=== PATIENT | male | born 1970 | race American Indian/Alaskan Native ===

== ENCOUNTER 2017-07-04 20:45 | Emergency (ER) | payer MEDICAID ==
[2017-07-05] MEDS ORDERED: Ibuprofen 600 MG Tab PO ONE (00:11)
--- NOTE | 2017-07-05 00:13 | EDM.PDOC ---
ED HPI GENERAL MEDICAL PROBLEM - General Chief Complaint: Upper Extremity Injury/Pain Stated Complaint: [id number] HAND HURTS AND VERY SWOLLEN Time Seen by Provider: 07/05/17 00:13 Source of Information: Reports: Patient History Limitations: Reports: No Limitations - History of Present Illness INITIAL COMMENTS - FREE TEXT/NARRATIVE: swelling to left hand x 2 days pain with minimal movement, no injury. No break in skin noted. Right Hand Pain Score (Numeric/FACES): 8 - Related Data Allergies Allergy/AdvReac Type Severity Reaction Status Date / Time Penicillins Allergy Rash Verified 07/04/17 21:19 Home Meds: Home Meds . [Unable to Verify Home Med List] 07/04/17 [History] Past Medical History Cardiovascular History: Reports: High Cholesterol, Hypertension - Infectious Disease History Infectious Disease History: Reports: Chicken Pox Social & Family History - Family History Family Medical History: Noncontributory - Tobacco Use Smoking Status *Q: Current Every Day Smoker Years of Tobacco use: 1 Packs/Tins Daily: 0.3 - Caffeine Use Caffeine Use: Reports: Coffee, Energy Drinks, Soda, Tea - Recreational Drug Use Recreational Drug Use: No Review of Systems - Review of Systems Review Of Systems: See Below Constitutional: Reports: No Symptoms Eyes: Reports: No Symptoms Ears: Reports: No Symptoms Nose: Reports: No Symptoms Mouth/Throat: Reports: No Symptoms Respiratory: Reports: No Symptoms Musculoskeletal: Reports: Arm Pain, Hand Pain (left), Joint Swelling (left wrist ) Skin: Reports: No Symptoms Neurological: Reports: No Symptoms ED EXAM, GENERAL - Physical Exam Exam: See Below Exam Limited By: No Limitations General Appearance: Alert, Mild Distress Eye Exam: Bilateral Eye: EOMI Ears: Normal External Exam Nose: Normal Inspection Throat/Mouth: Normal Inspection Respiratory/Chest: No Respiratory Distress, Lungs Clear Cardiovascular: Regular Rate, Rhythm Extremities: Limited Range of Motion (left hand and wrist, swollen, warm to touch, tender. skin intact) Neurological: Alert, Oriented Skin Exam: Dry, Intact, Increased Warmth, Tattoo(s) Course - Vital Signs Last Recorded V/S: Last Vital Signs Temp 99.6 F 07/04/17 21:21 Pulse 83 07/04/17 21:21 Resp 18 07/04/17 21:21 BP 162/94 H 07/04/17 21:21 Pulse Ox 98 07/04/17 21:21 - Orders/Labs/Meds Labs: Laboratory Tests 07/05/17 07/05/17 07/05/17 Range/Units 00:17 00:17 00:17 WBC 8.2 (5.0-10.0) 10^3/uL RBC 5.36 (4.6-6.2) 10^6/uL Hgb 15.6 (14.0-18.0) g/dL Hct 45.4 (40.0-54.0) % MCV 84.7 (80-100) fL MCH 29.1 (27.0-34.0) pg MCHC 34.4 (33.0-35.0) g/dL Plt Count 210 (150-450) 10^3/uL Neut % (Auto) 71.9 (42.2-75.2) % Lymph % (Auto) 18.1 L (20.5-50.1) % [place] % (Auto) 7.1 (2-8) % Eos % (Auto) 2.7 (1.0-3.0) % Baso % (Auto) 0.2 (0.0-1.0) % Sodium 137 (135-145) mmol/L Potassium 3.4 L (3.6-5.0) mmol/L Chloride 102 (101-111) mmol/L Carbon Dioxide 28.0 (21.0-31.0) mmol/L Anion Gap 10.4 BUN 14 (7-18) mg/dL Creatinine 1.0 (0.6-1.3) mg/dL Est Cr Clr Drug Dosing 99.16 mL/min Estimated GFR (MDRD) > 60 BUN/Creatinine Ratio 14.00 Glucose 107 H (74-105) mg/dL Lactic Acid 0.6 (0.5-2.2) mmol/L Uric Acid 7.9 H (2.6-7.2) mg/dL Calcium 9.2 (8.4-10.2) mg/dl Total Bilirubin 1.3 H (0.2-1.0) mg/dL AST 28 (10-42) IU/L ALT 17 (10-60) IU/L Alkaline Phosphatase 73 (42-121) IU/L Total Protein 8.0 (6.7-8.2) g/dl Albumin 4.4 (3.2-5.5) g/dl Globulin 3.6 Albumin/Globulin Ratio 1.22 Meds: Medications Discontinued Medications Generic Name Dose Route Start Last Admin Trade Name Pedro PRN Reason Stop Dose Admin Hydrocodone Bitart/Acetaminophen 1 tab 07/05/17 01:03 07/05/17 01:08 [place] 325-10 Mg PO 07/05/17 01:04 1 tab ONETIME ONE Administration Ibuprofen 600 mg 07/05/17 00:11 07/05/17 00:30 Motrin PO 07/05/17 00:12 600 mg ONETIME ONE Administration - Radiology Interpretation Free Text/Narrative:: left hand , no faracture, or dislocation Departure - Departure Time of Disposition: 00:55 Disposition: Home, Self-Care 01 Condition: Good Clinical Impression: Gout Qualifiers: Gout site: hand Gout etiology: unspecified cause Chronicity: acute Laterality: left Qualified Code(s): M10.9 - Gout, unspecified - Discharge Information Instructions: Low-Purine Eating Plan, Gout, [id number] Referrals: Henry Garduno [Primary Care Provider] - Forms: ED Department Discharge Additional Instructions: elevate ibuprofen 600mg every 8 hours #30, may alternate with tylenol inbetween for severe pain Increase fluids gout information packet
[2017-07-05 00:43] LABS: CHLORIDE,CL 102 mmol/L (101-111); SODIUM,NA 137 mmol/L (135-145)
[2017-07-05] MEDS ORDERED: Acetaminophen/HYDROcodone 325-10 MG Tab PO ONE (01:03)
== END 2017-07-05 01:05 | disposition home or self-care (01) ==
LOC: DL.ED 20:45
DX: M10.9 Gout, unspecified (principal); I10 Essential (primary) hypertension; F17.210 Nicotine dependence, cigarettes, uncomplicated; Z88.0 Allergy status to penicillin
CPT/HCPCS: 36415; 73130; 80053; 83605; 84550; 85025; 99283; A9270

== ENCOUNTER 2019-02-14 09:10 | Inpatient (IN) | payer MEDICAID, OTHER ==
--- NOTE | 2019-02-14 09:30 | EDM.PDOC ---
ED HPI GENERAL MEDICAL PROBLEM - General Chief Complaint: Head Injury Stated Complaint: AMBULANCE Time Seen by Provider: 02/14/19 09:21 Source of Information: Reports: Patient, EMS History Limitations: Reports: No Limitations - History of Present Illness INITIAL COMMENTS - FREE TEXT/NARRATIVE: HPI- This 49 yo male patient was brought to the ED by [facility] after falling in the shower this morning, hitting his head on the soap dish and being unable to control the bleeding on his own. EMS had attempted to control bleeding prior to arrival but were unable to control the bleeding. The patient reports he was drinking last night. The patient denies any loss of consciousness before, during or after the fall. Primary Survey Airway: open and patient Breathing: regular without additional effort Circulation: The patient had arterial bleeding from the left temporal area due to a laceration. Bleeding initially controlled with direct digital pressure. Wound sutured to control bleeding for CT scans. Deformity: no deformity noted Expose: as appropriate GCS: 15 Secondary Survey HEENT Head: Laceration to the left Mor[place] (sutured upon arrival) with no current bleeding Eyes: PERRLA Ears: no obvious trauma, canals open Nose: no deformity, no bleeding, mucosa moist Mouth: no noted trauma Throat: no abnormalities noted Neck: Subtle, normal range of motion no cervical tenderness Chest: lung sounds were clear and equal bilaterally, Heart was RRR, no murmurs, rubs or gallop Abdomen: normoactive bowel sounds, no organomegally. The patient's expression tells that the patient has diffuse abdominal pain, but the patient states he is alright and wants to sign out of the hospital. Pelvis: stable Extremities: CMS intact Provider Trauma Notes Arrival Time: 914 GCS on Arrival: 15 C-collar present on arrival: No (patient refused c-collar) GCS at 1 hour: 15 Off spine board: NA Time primary survey: 920 Time secondary survey: 951 Time C-collar cleared: By: Time removed: GCS on discharge: Onset: Today Duration: Hour(s):, Constant Location: Reports: Head (left temporal bleeding) Quality: Reports: Ache Severity: Moderate Improves with: Reports: None Worsens with: Reports: None Context: Reports: Other Associated Symptoms: Reports: No Other Symptoms head Pain Score (Numeric/FACES): 6 - Related Data Allergies Allergy/AdvReac Type Severity Reaction Status Date / Time Penicillins Allergy Rash Verified 08/11/17 14:52 Home Meds: Home Meds Aspirin [Halfprin] 81 mg PO DAILY 08/11/17 [History] Omeprazole 20 mg PO DAILY 08/11/17 [History] hydroCHLOROthiazide [Hydrochlorothiazide] 12.5 mg PO DAILY 08/11/17 [History] Past Medical History Cardiovascular History: Reports: High Cholesterol, Hypertension Gastrointestinal History: Reports: GERD Musculoskeletal History: Reports: Gout - Infectious Disease History Infectious Disease History: Reports: Chicken Pox Social & Family History - Family History Family Medical History: Noncontributory - Caffeine Use Caffeine Use: Reports: Coffee, Energy Drinks, Soda ED ROS GENERAL - Review of Systems Review Of Systems: Comprehensive ROS is negative, except as noted in HPI. ED EXAM, HEAD INJURY - Physical Exam Exam: See Below Exam Limited By: No Limitations General Appearance: Alert, WD/WN, Mild Distress Head: Active Bleeding (left advent ) Nexus Criteria: Painful Distraction Injuries Eyes: Bilateral Eye: EOMI, Normal Inspection, PERRL Ears: Canal Blood (no bleeding from the ear, but blood in the left canal) Nose: Normal Inspection, Normal Mucousa, No Blood Throat/Mouth: Normal Inspection, Normal Lips, Normal Teeth, Normal Gums, Normal Oropharynx, Normal Voice, No Airway Compromise Neck: Non-Tender, Full Range of Motion, Normal Alignment, Normal Inspection Respiratory: No Respiratory Distress, Lungs Clear, Normal Breath Sounds, No Accessory Muscle Use, Chest Non-Tender Cardiovascular: Normal Peripheral Pulses, Regular Rate, Rhythm, No Edema, No Gallop, No JVD, No Murmur, No Rub GI/Abdominal Exam: Tender (diffuse tenderness (patient denies any pain or tenderness) ) (Male) Exam: No Hernia, Normal Inspection, Normal Prostate, Circumcised Rectal (Males) Exam: Normal Exam, Normal Rectal Tone, Prostate Normal Back Exam: Full Range of Motion, Normal Inspection, NT Extremities: Normal Inspection, Normal Range of Motion, Non-Tender, No Pedal Edema, Normal Capillary Refill Neurologic: wafer cleaner II-XII nml As Tested, No Motor/Sensory Deficits, Alert, Normal Mood/Affect, Oriented x 3 - [place] Coma Score Best Eye Response ([place]): (4) Open Spontaneously Best Verbal Response ([place]): (5) Oriented Best Motor Response ([place]): (6) Obeys Commands [place] Total: 15 ED LACERATION/WOUND & DENA PROC - Laceration/Wound Repair Left Head Lac/wound length in cm: 2.0 Appearance: Subcutaneous Distal NVT: Neuro & Vascular Intact Skin Prep: Other Exploration/Debridement/Repair: Wound Explored Closed with: Sutures Suture Size: 3-0 # of Sutures: 3 Suture Type: Prolene, Interrupted, Simple Drain Placement: No Sterile Dressing Applied: Nurse Tetanus Status Addressed: Other Complications: No Course - Vital Signs Last Recorded V/S: Last Vital Signs Temp Pulse 117 H 02/14/19 09:21 Resp BP 91/47 L 02/14/19 09:21 Pulse Ox 95 02/14/19 09:21 - Orders/Labs/Meds Orders: Active Orders 24 hr Category Date Time Status Cervical Spine wo Cont [CT] Urgent Exams 02/14/19 09:18 Ordered Head wo Cont [CT] Urgent Exams 02/14/19 09:18 Ordered Max Facial Sinus wo Cont [CT] Urgent Exams 02/14/19 09:18 Ordered CBC WITH AUTO DIFF [HEME] Urgent Lab 02/14/19 09:19 Ordered COMPREHENSIVE METABOLIC PN,CMP [CHEM] Urgent Lab 02/14/19 09:19 Ordered ETHANOL BLOOD MEDICAL [CHEM] Stat Lab 02/14/19 09:19 Ordered - Re-Assessments/Exams Free Text/Narrative Re-Assessment/Exam: 02/14/19 10:06 The patient refused any additional care and did not want to wait for any additional results. The patient was advised that he would be leaving against medical advice. The patient denies any additional testing or work up. The patient's family was in the room and attempted to get the patient to stay, but the patient refused to stay. The patient checked out against medical advice prior to complete work-up or evaluation. Departure - Departure Time of Disposition: 10:09 Disposition: Against Medical Advice 07 Condition: Undetermined Clinical Impression: Laceration of head Qualifiers: Encounter type: initial encounter Location of open wound of head: scalp Foreign body presence: without foreign body Qualified Code(s): S01.01XA - Laceration without foreign body of scalp, initial encounter Fall Qualifiers: Encounter type: initial encounter Qualified Code(s): W19.XXXA - Unspecified fall, initial encounter - Discharge Information *PRESCRIPTION DRUG MONITORING PROGRAM REVIEWED*: Not Applicable *COPY OF PRESCRIPTION DRUG MONITORING REPORT IN PATIENT KATHARINE: Not Applicable Instructions: Laceration Care, Adult, [id number], Stitches, [place], or Adhesive Wound Closure, [id number] Care Plan Goals: The patient refused to stay for results or further care. The patient was advised of the risks, but left the ED against medical advice. Attempts at getting the patient to stay for a complete work-up resulted in the patient leaving against medical advice. Sepsis Event Note - Evaluation Sepsis Screening Result: No Definite Risk - Focused Exam Vital Signs: Vital Signs Pulse BP Pulse Ox 02/14/19 09:21 117 H 91/47 L 95 Date Exam was Performed: 02/14/19 Time Exam was Performed: 09:23 - My Orders Last 24 Hours: My Active Orders 02/14/19 09:18 Cervical Spine wo Cont [CT] Urgent Head wo Cont [CT] Urgent Max Facial Sinus wo Cont [CT] Urgent 02/14/19 09:19 CBC WITH AUTO DIFF [HEME] Urgent COMPREHENSIVE METABOLIC PN,CMP [CHEM] Urgent ETHANOL BLOOD MEDICAL [CHEM] Stat - Assessment/Plan Last 24 Hours: My Active Orders 02/14/19 09:18 Cervical Spine wo Cont [CT] Urgent Head wo Cont [CT] Urgent Max Facial Sinus wo Cont [CT] Urgent 02/14/19 09:19 CBC WITH AUTO DIFF [HEME] Urgent COMPREHENSIVE METABOLIC PN,CMP [CHEM] Urgent ETHANOL BLOOD MEDICAL [CHEM] Stat
--- NOTE | 2019-02-14 09:55 | CT ---
EXAMINATION: Head wo Cont SEX: Male AGE: 49 years CLINICAL HISTORY: 49-year-old male injured fall (bathtub) with laceration ("liter" over the left eye. Scan technique: Volume acquisition of data emergency unenhanced CT scan of the head and brain obtained with patient lying supine on the Siemens multislice scanner [place], [place]. All data archived in the PACS system for storage, reformatting axial/sagittal/coronal planes and study (bone/soft tissue windows). Interpretation: Edentulous patient with some focal soft tissue swelling over the orbit on the left. Old nasal fracture deformity. No foreign bodies or signs of underlying frontal bone fracture. Frontal and ethmoid sinuses clear. Uniformly thick bony calvarium without sign of underlying brain contusion or epidural/subdural hematoma. Symmetric lew-white matter pattern with underlying mirror-image normal ventricular system. No sign of supratentorial or posterior fossa mass lesion, ischemic infarct/encephalomalacia, pathologic calcifications, or acute intracerebral/intraventricular/subarachnoid bleed. Cerebellum and brainstem unremarkable (physiologic midline pineal and symmetric choroid plexus calcifications). Inflammatory changes left maxillary sinus. Possible old "blowout" floor of the left orbit. No retrobulbar hematoma or entrapment. Symmetric clear pneumatization of the mastoid and other paranasal sinuses. CONCLUSION: Left maxillary sinusitis; probable old "blowout" floor of the left orbit. Old nasal bone fractures. Edentulous. No sign of acute skull fracture or closed head injury.
--- NOTE | 2019-02-14 10:01 | CT ---
EXAMINATION: Cervical Spine wo Cont SEX: Male AGE: 49 years CLINICAL HISTORY: 49-year-old male injured fall (bathtub this morning) with head trauma (bleeding over forehead, on the left). INTERPRETATION: 1. Edentulous patient with abnormal TMJ on the left. No basal skull fracture. 2. Dense reactive atlantoaxial sclerosis and chronic severe disc degeneration C5-6 i.e. loss of interspace with hypertrophic marginal and uncinate spur formation. Reversal of usual cervical lordosis. 3. No sign of congenital abnormality, pathologic skeletal lesion, prevertebral soft tissue swelling, cervical fracture, spondylolisthesis or jumped locked facets. 4. Facet joint sclerosis at several levels. No other intervertebral disc space narrowing. CONCLUSION: No cervical fractures. Chronic severe C5-6 degenerative disc with arthritis.
[2019-02-14 10:05] LABS: ANION GAP 18.7
--- NOTE | 2019-02-14 10:09 | CT ---
EXAMINATION: Max Facial Sinus wo Cont SEX: Male AGE: 49 years CLINICAL HISTORY: 49-year-old male injured FALL (bathtub) i.e. head trauma above orbit, on the left. INTERPRETATION: 1. Old healed nasal fracture deformity. Nasal septum is straight midline. 2. Cortical "break" floor of the orbit and anterior wall left maxillary antrum with signs of ipsilateral periosteal thickening (sinusitis). Old trauma suspect but no comparison exams immediately available. No sign of rectal bulbar hematoma or inferior rectus muscle entrapment. 3. Symmetric clear pneumatization of the frontal, ethmoid and sphenoid sinuses. Right maxillary sinus clear. 4. Edentulous patient with abnormal left TMJ. Symmetric clear pneumatization of the mastoid sinuses. No basal skull fracture. 5. Asymmetric soft tissue swelling over the orbit on the left. No foreign body or underlying fracture. CONCLUSION: Evidence of old trauma. No acute facial bone fracture.
[2019-02-14] MEDS ORDERED: Iopamidol 612 MG/ML 100 ML Bottle IVPUSH ONE (10:35)
--- NOTE | 2019-02-14 11:34 | CR ---
EXAMINATION: Chest 1V Frontal SEX: Male AGE: 49 years CLINICAL HISTORY: 49-year-old male syncope, fall (hit head on bathtub); forehead laceration with bleeding. Abdominal pain. INTERPRETATION: 1. Generally poor inspiratory effort and asymmetric elevation right hemidiaphragm. 2. No rib fractures, lung contusion, atelectasis, pleural effusion or pneumothorax. 3. Normal cardiac silhouette and mediastinal width. Normal midline tracheal airway. 4. No cephalization of vascular flow, alveolar edema or dependent effusion. 5. No lung mass, hilar lymphadenopathy or focal lobar infiltrate/atelectasis. 6. No pneumothorax or pneumomediastinum. CONCLUSION: Negative exam.
--- NOTE | 2019-02-14 12:05 | CT ---
EXAMINATION: Abdomen Pelvis w Cont SEX: Male AGE: 49 years CLINICAL HISTORY: 49 year-old 239 pound male injured in a fall (syncopal episode, hit head on bathtub). RLQ abdominal pain. Scan technique: Volume acquisition of data from the abdomen and pelvis obtained without oral contrast but during intravenous administration 100 cc nonionic Isovue were patient was lying supine on the Siemens multislice scanner [place], [place]. All data archived in the PACS system for storage, reformatting axial/sagittal/coronal planes and study. INTERPRETATION: 1. Solitary tiny indeterminate (no calcification or spiculation) 9.5 mm diameter peripheral nodule laterally left lower lobe. Lung bases otherwise clear. No lower rib fractures or underlying lung contusion. No pleural effusion. 2. No abdominal wall hematoma or inflammatory "dirty" peritoneal fat. Normal appendix RLQ. 3. No foreign bodies, abdominal/pelvic soft tissue mass lesion, signs of mechanical bowel obstruction, ascites or free air. 4. Chronic lower thoracic and lumbar disc disease with associated hypertrophic arthritis. 5. Gallbladder, fatty liver, stomach, spleen, pancreas and adrenal glands unremarkable. Normal reniform size, axis and configuration. No renal cortical mass lesion, nephrolithiasis or signs of obstructive uropathy. Indwelling bladder catheter. 6. Normal caliber aortoiliac vessels. Colon CONCLUSION: Negative exam abdomen. Isolated indeterminate lung nodule left base. Chronic L5-S1 disc disease.
[2019-02-14] MEDS ORDERED: Acetaminophen 325 MG Tab PO ONE (13:16)
[2019-02-14] MEDS ORDERED: Ondansetron 4 MG/2 ML SDV IV ONE (16:00)
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
[2019-02-14] MEDS ORDERED: Acetaminophen 325 MG Tab PO PRN (18:15)
[2019-02-14] MEDS ORDERED: Morphine 2 MG/ML Syringe IVPUSH PRN (18:15)
[2019-02-14] MEDS ORDERED: LORazepam 1 MG Tab PO PRN (18:22)
[2019-02-14] MEDS ORDERED: Sodium Chloride 0.9% 10 ML Syringe FLUSH PRN (18:46)
[2019-02-14] MEDS: Acetaminophen/HYDROcodone 325-10 MG Tab PO PRN (19:38)
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
[2019-02-15 06:28] LABS: ANION GAP 14.6; CHLORIDE,CL 104 mmol/L (101-111); SODIUM,NA 138 mmol/L (135-145)
[2019-02-15] MEDS: Acetaminophen/HYDROcodone 325-10 MG Tab PO PRN ×3 (07:50→20:01)
[2019-02-15] MEDS: Sodium Chloride 0.9% 1,000 ML IV SCH ×2 (08:39→17:55)
--- NOTE | 2019-02-15 09:40 | PN ---
DATE: 02/15/2019 SUBJECTIVE: The patient this morning still complaining of pain in his oral cavity and also on the left scalp area but overall has been doing fairly well. He has not ambulated yet, but his blood pressure has improved when compared to yesterday, and he denies any chest pain, shortness of breath, abdominal pain, or focal weakness. OBJECTIVE: VITAL SIGNS: Blood pressure is 132/81, pulse of 97, respirations 20, saturations 99% on room air, and temperature is 97.3. SHEENT: Remarkable for the bandage on the left scalp area. There are pink palpebral conjunctivae. Sclerae anicteric. Heart: Regular rate and rhythm. Normal S1 and S2. No gallops. No rubs. Lungs: Equal bilaterally. No crackles, no wheezing. Abdomen: Soft, nontender. Bowel sounds positive. Extremities: Negative for any pedal edema. No calf tenderness. Neurologic: Negative for any lateralizing signs. LABORATORY DATA: Lab workup this morning: CBC; WBC is 4.9, hemoglobin is 11.5, hematocrit is 34.1, and platelet is 184. Chem 6 unremarkable except for glucose of 140 and calcium of 7.8. PLAN: We will continue with his present management and please note that the IV fluids was not started last night. This will be started today, and we will also start ambulating the patient and see how he does. [facility] /[id number]
[2019-02-15] MEDS: Nicotine 14 MG/24 Hr Patch TRDERM SCH (13:52)
[2019-02-16] MEDS: Sodium Chloride 0.9% 1,000 ML IV SCH (02:06)
[2019-02-16] MEDS: Acetaminophen/HYDROcodone 325-10 MG Tab PO PRN ×4 (04:26→22:20)
--- NOTE | 2019-02-16 09:34 | PN ---
DATE: 02/16/2019 SUBJECTIVE: The patient is feeling a little bit better this morning. He is not that dizzy, but he is still complaining of being sore on his head and on his oral cavity and face. He denies though any fever, chills, or chest pain, nor any other significant complaints. LABORATORY DATA: Lab workup this morning: CBC; WBC is 3.9, hemoglobin is 9.9, hematocrit is 29.4, platelet is 144. OBJECTIVE: Vital Signs: Blood pressure is 115/58, pulse of 80, respirations 20, and temperature of 98.1. SHEENT: Remarkable for the lacerated wound on the scalp. Otherwise negative. Heart: Regular rate and rhythm. Normal S1 and S2. No gallops. No rubs. Lungs: Clear. No crackles. No wheezing. Abdomen: Soft, nontender. Extremities: Negative for any gross deformities. No significant pedal edema. No calf tenderness. PLAN: We will discontinue his IV fluid and we will continue to increase his activity, and if he continues to do well, we will discharge in the morning. [facility] /[id number]
[2019-02-16] MEDS: Nicotine 14 MG/24 Hr Patch TRDERM SCH (10:09)
[2019-02-17] MEDS: Acetaminophen/HYDROcodone 325-10 MG Tab PO PRN (05:46)
--- NOTE | 2019-02-17 07:56 | PN ---
DATE: 02/17/2019 SUBJECTIVE: The patient this morning is feeling slightly better. No more dizziness. He has been up and about and no more falls. He is still complaining though being sore in his head as well as on his face, but he denies any chest pain, shortness of breath, abdominal pain, or any other complaints. OBJECTIVE: Vital Signs: Blood pressure is 130/75, pulse 69, respirations 18, temperature of 98.4, saturation is 98%. SHEENT: Examination is remarkable for the laceration on the scalp with sutures. It is well coapted. No signs of infection. SHEENT examination otherwise negative. Heart: Regular rate and rhythm. Normal S1 and S2. No gallops. No rubs. Lungs: Equal bilaterally. No crackles. No wheezing. Abdomen: Soft, nontender. Extremities: Negative for any gross deformity. No pedal edema. Neurologic: Nonfocal. PLAN: We will discharge the patient home today, and we will also start the patient on ferrous sulfate for the blood-loss anemia and we will have him follow up at [facility] for removal of those sutures in 4 to 5 days. We will also give him some oxycodone for the next couple of days for pain management. [facility] /[id number]
--- NOTE | 2019-02-17 08:11 | DISCH ---
FINAL DIAGNOSES: 1. Head concussion. 2. Recurrent falls secondary to dizziness. 3. Dizziness secondary to orthostasis/blood loss anemia from the lacerated wound and head concussion. 4. History of hypertension. 5. Recent dental surgery. 6. Lacerated wound on the scalp. BRIEF HISTORY OF PRESENT ILLNESS: Please see H and P. PERTINENT LABS, X-RAY AND OTHER TESTS: See H and P. HOSPITAL COURSE: The patient was admitted to General Medicine floor and he was started on IV fluids and was also given pain medication for his aches and pains. The patient's hemoglobin dropped from 14.3 on admission to 9.9 on February 16, 2019, but overall the patient clinically was better and there were no more orthostasis and dizziness, and he was ambulating well and he was subsequently discharged. CONDITION ON DISCHARGE: Improved. FOLLOWUP: The patient to follow up at [facility] for removal of sutures in 4 to 5 days. [facility] /[id number]
== END 2019-02-17 09:35 | disposition home or self-care (01) | DRG 89 ==
LOC: DL.ED 09:10 → DL.MS 17:27
PROVIDERS: ADMIT Family Medicine; ATTEND Internal Medicine
PROC: 0HQ0XZZ Repair Scalp Skin, External Approach (ICD-10-PCS; principal; 2019-02-14)
DX: S06.0X0A Concussion without loss of consciousness, initial encounter (principal); D62 Acute posthemorrhagic anemia; I10 Essential (primary) hypertension; E78.00 Pure hypercholesterolemia, unspecified; K21.9 Gastro-esophageal reflux disease without esophagitis; M10.9 Gout, unspecified; F17.210 Nicotine dependence, cigarettes, uncomplicated; S01.01XA Laceration without foreign body of scalp, initial encounter; R29.6 Repeated falls; R40.2412 Glasgow coma scale score 13-15, at arrival to emergency department; W18.2XXA Fall in (into) shower or empty bathtub, initial encounter; Z98.890 Other specified postprocedural states; Z88.0 Allergy status to penicillin; Z79.82 Long term (current) use of aspirin
CPT/HCPCS: 36415; 70450; 70486; 71045; 72125; 74177; 80048; 80053; 80305-QW; 81003; 84484; 85025; 93005; 97162-GP; A9270-GY; G0480; J2405; J7030; Q9967

== ENCOUNTER 2021-09-28 00:45 | Emergency (ER) | payer MEDICAID, OTHER | END 2021-09-28 01:37 | LOC: DL.ED 00:45 | DX: F10.920 Alcohol use, unspecified with intoxication, uncomplicated (principal); I10 Essential (primary) hypertension; F17.210 Nicotine dependence, cigarettes, uncomplicated; Z88.0 Allergy status to penicillin | CPT/HCPCS: 99282; 99284 ==

== ENCOUNTER 2023-05-23 21:15 | Emergency (ER) | payer MEDICAID ==
[2023-05-23] MEDS: Ketorolac 30 MG/ML SDV IVPUSH ONE (21:47)
[2023-05-23] MEDS: Sodium Chloride 0.9% 1,000 ML IV SCH (21:48)
[2023-05-23 21:54] LABS: BASOPHILS PERCENT AUTO 0.4 % (0.0-1.0); EOSINOPHILS PERCENT AUTO 13.6 % (1.0-3.0); HEMATOCRIT 44.2 % (40.0-54.0); LYMPHOCYTES PERCENT AUTO 23.6 % (20.5-50.1); MEAN CORPUSCULAR HEMOGLOBIN 27.9 pg (27.0-34.0); MEAN CORPUSCULAR HGB CONC 33.9 g/dL (33.0-35.0); MEAN CORPUSCULAR VOLUME 82.3 fL (80-100); MONOCYTES PERCENT AUTO 7.7 % (2-8); NEUTROPHILS PERCENT AUTO 54.7 % (42.2-75.2); PLATELET COUNT,PLT 282 10^3/uL (150-450); RED BLOOD CELL COUNT 5.37 10^6/uL (4.6-6.2); WHITE BLOOD CELL COUNT,WBC 7.8 10^3/uL (5.0-10.0)
[2023-05-23 22:04] LABS: ALBUMIN 3.6 g/dL (3.4-5.0); ANION GAP 12.7 mEq/L (7-13); BILIRUBIN TOTAL 0.5 mg/dL (0.2-1.0); BUN/CREATININE RATIO 12.6 (No establ ref range); CALCIUM 8.5 mg/dL (8.5-10.1); CREATININE 0.95 mg/dL (0.70-1.30); EST CRCL DRUG DOSING (CG) 103.35 mL/min; POTASSIUM,K 3.7 mmol/L (3.5-5.1); PROTEIN TOTAL,TP 7.3 g/dL (6.4-8.2)
[2023-05-23 22:21] LABS: CORONAVIRUS COVID-19 NAA NEGATIVE (NEGATIVE); INFLUENZA A NAA NEGATIVE (NEGATIVE); INFLUENZA B NAA NEGATIVE (NEGATIVE); RESPIRATORY SYNCYTIAL VIR NAA NEGATIVE (NEGATIVE)
== END 2023-05-23 23:10 | disposition home or self-care (01) ==
LOC: DL.ED 21:15
DX: J06.9 Acute upper respiratory infection, unspecified (principal); I10 Essential (primary) hypertension; E78.00 Pure hypercholesterolemia, unspecified; Z79.82 Long term (current) use of aspirin; Z79.899 Other long term (current) drug therapy; Z88.0 Allergy status to penicillin
CPT/HCPCS: 0241U; 36415; 71045; 80053; 85025; 87081; 87430; 96361; 96374; 99283; 99284; J1885; J7030

== ENCOUNTER 2023-09-22 18:01 | Emergency (ER) | payer MEDICAID ==
[2023-09-22 18:46] LABS: BASOPHILS PERCENT AUTO 0.8 % (0.0-1.0); EOSINOPHILS PERCENT AUTO 3.3 % (1.0-3.0); HEMATOCRIT 46.4 % (40.0-54.0); HEMOGLOBIN 16.1 g/dL (14.0-18.0); LYMPHOCYTES PERCENT AUTO 32.6 % (20.5-50.1); MEAN CORPUSCULAR HEMOGLOBIN 29.3 pg (27.0-34.0); MEAN CORPUSCULAR HGB CONC 34.7 g/dL (33.0-35.0); MEAN CORPUSCULAR VOLUME 84.4 fL (80-100); MONOCYTES PERCENT AUTO 7.8 % (2-8); NEUTROPHILS PERCENT AUTO 55.5 % (42.2-75.2); PLATELET COUNT,PLT 232 10^3/uL (150-450); WHITE BLOOD CELL COUNT,WBC 4.9 10^3/uL (5.0-10.0)
[2023-09-22] MEDS: Pantoprazole 40 MG Vial IVPUSH ONE (18:53)
[2023-09-22] MEDS: HYDROmorphone 1 MG/ML Syringe IVPUSH ONE (18:53)
[2023-09-22 18:58] LABS: PROTHROMBIN TIME 10.5 SEC (9.0-12.0); PTT,PARTIAL THROMBOPLSTIN TIME 25.3 SEC (22.0-34.0)
[2023-09-22 19:01] LABS: A/G RATIO 1.1; ALANINE AMINOTRANSFERASE,ALT 95 U/L (16-63); ALKALINE PHOSPHATASE 194 U/L (46-116); AMYLASE 37 U/L (25-115); ANION GAP 17.5 mEq/L (7-13); ASPARTATE AMNIOTRANSFERASE,AST 122 U/L (15-37); BILIRUBIN TOTAL 0.5 mg/dL (0.2-1.0); BLOOD UREA NITROGEN,BUN 7 mg/dL (7-18); BUN/CREATININE RATIO 6.7 (No establ ref range); CALCIUM 8.6 mg/dL (8.5-10.1); CARBON DIOXIDE,CO2 23 mmol/L (21-32); CHLORIDE,CL 105 mmol/L (98-107); CREATININE 1.05 mg/dL (0.70-1.30); ETHANOL BLOOD MEDICAL 287 mg/dL (0); GLUCOSE RANDOM 114 mg/dL (70-99); LIPASE 59 U/L (16-77); POTASSIUM,K 3.5 mmol/L (3.5-5.1); PROTEIN TOTAL,TP 7.8 g/dL (6.4-8.2); SODIUM,NA 142 mmol/L (136-145)
[2023-09-22] MEDS: Sodium Chloride 0.9% 10 ML Syringe FLUSH PRN (19:01)
[2023-09-22] MEDS: Sodium Chloride 0.9% 1,000 ML IV ONE (19:01)
[2023-09-22 19:03] LABS: C-REACTIVE PROTEIN < 0.50 ng/dL (<=0.50); ESTIMATED GFR 84 mL/min (>=60)
[2023-09-22 19:04] LABS: LACTIC ACID 2.3 mmol/L (0.4-2.0)
[2023-09-22] MEDS: Iopamidol 612 MG/ML 100 ML Bottle IVPUSH ONE (19:21)
[2023-09-22 19:43] LABS: APPEARANCE,URINE CLEAR (CLEAR); BILIRUBIN,URINE NEGATIVE (NEGATIVE); COLOR,URINE YELLOW (YELLOW); GLUCOSE,URINE NEGATIVE (NEGATIVE); KETONES,URINE NEGATIVE (NEGATIVE); LEUKOCYTE ESTERASE,URINE NEGATIVE (NEGATIVE); NITRITE,URINE NEGATIVE (NEGATIVE); OCCULT BLOOD,URINE NEGATIVE (NEGATIVE); PH,URINE 6.5 (5.0-9.0); PROTEIN,URINE NEGATIVE (NEGATIVE); UROBILINOGEN,URINE 0.2 mg/dL (0.2-1.0)
[2023-09-22 19:44] LABS: AMPHETAMINES,URINE NEGATIVE (NEGATIVE); BARBITURATES,URINE NEGATIVE (NEGATIVE); BENZODIAZEPINE,URINE NEGATIVE (NEGATIVE); MDMA (ECSTASY), URINE NEGATIVE (NEGATIVE); METHADONE,URINE NEGATIVE (NEGATIVE); METHAMPHETAMINES,URINE NEGATIVE (NEGATIVE); OPIATES,URINE NEGATIVE (NEGATIVE); OXYCODONE,URINE NEGATIVE (NEGATIVE); PHENCYCLIDINE,URINE NEGATIVE (NEGATIVE); TCA,URINE NEGATIVE (NEGATIVE)
[2023-09-22] MEDS: Lisinopril 5 MG Tab PO ONE (20:37)
[2023-09-22] MEDS: Pantoprazole 40 MG Tab.CR PO ONE (20:37)
== END 2023-09-22 20:44 | disposition home or self-care (01) ==
LOC: DL.ED 18:01
DX: K57.90 Diverticulosis of intestine, part unspecified, without perforation or abscess without bleeding (principal); K29.20 Alcoholic gastritis without bleeding; R16.0 Hepatomegaly, not elsewhere classified; R74.02 Elevation of levels of lactic acid dehydrogenase [LDH]; F10.920 Alcohol use, unspecified with intoxication, uncomplicated; I10 Essential (primary) hypertension; E78.00 Pure hypercholesterolemia, unspecified; F17.210 Nicotine dependence, cigarettes, uncomplicated; Z88.0 Allergy status to penicillin; Z79.82 Long term (current) use of aspirin; Z79.899 Other long term (current) drug therapy
CPT/HCPCS: 36415; 71045; 74177; 80053; 80305-QW; 80307; 81003; 82150; 82272; 83605; 83690; 83735; 84145; 84484; 85025; 85610; 85730; 86140; 86850; 86900; 86901; 87040; 93005; 93010; 96361; 96374; 96375; 99284; 99284-25; A9270-GY; J1170; J2470; J3490; J7030; Q9967

== ENCOUNTER 2023-09-23 02:44 | Emergency (ER) | payer MEDICAID ==
[2023-09-23] MEDS ORDERED: Ondansetron 4 MG in Sodium Chloride 0.9% 50 ML IV ONE (03:40)
[2023-09-23] MEDS: Sodium Chloride 0.9% 1,000 ML IV ONE ×2 (03:45→04:30)
[2023-09-23] MEDS: Ondansetron 4 MG/2 ML SDV IVPUSH ONE (03:48)
[2023-09-23] MEDS: Ketorolac 30 MG/ML SDV IVPUSH ONE (03:50)
[2023-09-23] MEDS: Famotidine 20 MG/2 ML SDV IVPUSH ONE (03:52)
[2023-09-23 04:04] LABS: BASOPHILS PERCENT AUTO 0.9 % (0.0-1.0); EOSINOPHILS PERCENT AUTO 3.2 % (1.0-3.0); HEMATOCRIT 50.7 % (40.0-54.0); HEMOGLOBIN 17.6 g/dL (14.0-18.0); LYMPHOCYTES PERCENT AUTO 34.2 % (20.5-50.1); MEAN CORPUSCULAR HEMOGLOBIN 29.2 pg (27.0-34.0); MEAN CORPUSCULAR HGB CONC 34.7 g/dL (33.0-35.0); MEAN CORPUSCULAR VOLUME 84.2 fL (80-100); MONOCYTES PERCENT AUTO 7.9 % (2-8); NEUTROPHILS PERCENT AUTO 53.8 % (42.2-75.2); PLATELET COUNT,PLT 208 10^3/uL (150-450); RED BLOOD CELL COUNT 6.02 10^6/uL (4.6-6.2); WHITE BLOOD CELL COUNT,WBC 5.3 10^3/uL (5.0-10.0)
[2023-09-23 04:17] LABS: A/G RATIO 1.1; ALBUMIN 3.7 g/dL (3.4-5.0); ANION GAP 14.9 mEq/L (7-13); BILIRUBIN TOTAL 0.5 mg/dL (0.2-1.0); BUN/CREATININE RATIO 5.2 (No establ ref range); CALCIUM 8.2 mg/dL (8.5-10.1); CREATININE 1.15 mg/dL (0.70-1.30); EST CRCL DRUG DOSING (CG) 85.38 mL/min; POTASSIUM,K 3.9 mmol/L (3.5-5.1); PROTEIN TOTAL,TP 7.1 g/dL (6.4-8.2)
[2023-09-23] MEDS ORDERED: Naloxone 2 MG/2 ML Syringe IVPUSH PRN ×2 (04:21→05:16)
[2023-09-23] MEDS: Morphine 2 MG/ML SYRINGE IVPUSH ONE ×2 (04:29→05:25)
== END 2023-09-23 05:40 | disposition home or self-care (01) ==
LOC: DL.ED 02:44
DX: R10.13 Epigastric pain (principal); F10.120 Alcohol abuse with intoxication, uncomplicated; I10 Essential (primary) hypertension; E78.00 Pure hypercholesterolemia, unspecified; K21.9 Gastro-esophageal reflux disease without esophagitis; Z88.0 Allergy status to penicillin; Z79.82 Long term (current) use of aspirin; Z79.899 Other long term (current) drug therapy; Y90.9 Presence of alcohol in blood, level not specified
CPT/HCPCS: 36415; 80053; 80307; 82271; 83690; 84484; 85025; 93005; 93010; 96361; 96374; 96375; 96376; 99284; J1885; J2270; J2405; J3490; J7030

== ENCOUNTER 2023-09-24 18:07 | Emergency (ER) | payer MEDICAID ==
[2023-09-24] MEDS: Ondansetron 4 MG/2 ML SDV IVPUSH ONE (18:46)
[2023-09-24] MEDS: Sodium Chloride 0.9% 10 ML Syringe FLUSH PRN (18:51)
[2023-09-24] MEDS: Sodium Chloride 0.9% 1,000 ML IV ONE (18:51)
[2023-09-24] MEDS: Haloperidol Lactate 5 MG/ML SDV IVPUSH ONE (18:51)
[2023-09-24 18:58] LABS: BASOPHILS PERCENT AUTO 0.7 % (0.0-1.0); EOSINOPHILS PERCENT AUTO 1.7 % (1.0-3.0); HEMATOCRIT 50.2 % (40.0-54.0); HEMOGLOBIN 17.5 g/dL (14.0-18.0); LYMPHOCYTES PERCENT AUTO 27.4 % (20.5-50.1); MEAN CORPUSCULAR HEMOGLOBIN 29.2 pg (27.0-34.0); MEAN CORPUSCULAR HGB CONC 34.9 g/dL (33.0-35.0); MEAN CORPUSCULAR VOLUME 83.8 fL (80-100); MONOCYTES PERCENT AUTO 9.3 % (2-8); NEUTROPHILS PERCENT AUTO 60.9 % (42.2-75.2); PLATELET COUNT,PLT 230 10^3/uL (150-450); RED BLOOD CELL COUNT 5.99 10^6/uL (4.6-6.2); WHITE BLOOD CELL COUNT,WBC 5.8 10^3/uL (5.0-10.0)
[2023-09-24 19:13] LABS: A/G RATIO 1.1; ALBUMIN 4.2 g/dL (3.4-5.0); ANION GAP 17.9 mEq/L (7-13); BUN/CREATININE RATIO 8.4 (No establ ref range); CALCIUM 8.5 mg/dL (8.5-10.1); CREATININE 0.95 mg/dL (0.70-1.30); EST CRCL DRUG DOSING (CG) 103.35 mL/min; PROTEIN TOTAL,TP 8.1 g/dL (6.4-8.2)
[2023-09-24 19:19] LABS: INR 1.1 (0.9-1.2); PROTHROMBIN TIME 11.1 SEC (9.0-12.0)
[2023-09-24 19:28] LABS: POTASSIUM,K 3.9 mmol/L (3.5-5.1)
[2023-09-24] MEDS: Lisinopril 5 MG Tab PO ONE (20:21)
== END 2023-09-24 20:20 | disposition home or self-care (01) ==
LOC: DL.ED 18:07
DX: F10.120 Alcohol abuse with intoxication, uncomplicated (principal); R10.84 Generalized abdominal pain; R14.0 Abdominal distension (gaseous); I10 Essential (primary) hypertension; E78.00 Pure hypercholesterolemia, unspecified; K21.9 Gastro-esophageal reflux disease without esophagitis; F17.210 Nicotine dependence, cigarettes, uncomplicated; Z88.0 Allergy status to penicillin; Z79.82 Long term (current) use of aspirin; Z79.899 Other long term (current) drug therapy; Y90.9 Presence of alcohol in blood, level not specified
CPT/HCPCS: 36415; 74019; 80053; 80307; 85025; 85610; 93005; 93010; 96361; 96374; 96375; 99284; 99285; J1630; J2405; J7030; J3490

== ENCOUNTER 2024-01-07 11:52 | Emergency (ER) | payer MEDICAID ==
[2024-01-07 12:36] LABS: BASOPHILS PERCENT AUTO 0.7 % (0.0-1.0); HEMOGLOBIN 14.9 g/dL (14.0-18.0); LYMPHOCYTES PERCENT AUTO 27.5 % (20.5-50.1); MEAN CORPUSCULAR HEMOGLOBIN 29.6 pg (27.0-34.0); MEAN CORPUSCULAR HGB CONC 33.9 g/dL (33.0-35.0); MEAN CORPUSCULAR VOLUME 87.5 fL (80-100); MONOCYTES PERCENT AUTO 9.9 % (2-8); NEUTROPHILS PERCENT AUTO 52.9 % (42.2-75.2); PLATELET COUNT,PLT 218 10^3/uL (150-450); RED BLOOD CELL COUNT 5.03 10^6/uL (4.6-6.2); WHITE BLOOD CELL COUNT,WBC 4.4 10^3/uL (5.0-10.0)
[2024-01-07 12:55] LABS: C-REACTIVE PROTEIN 1.48 ng/dL (<=0.50)
[2024-01-07 13:10] LABS: SEDIMENTATION RATE MANUAL 5 mm/hr (0-15)
[2024-01-07] MEDS: Colchicine 0.6 MG Tab PO ONE (13:23)
== END 2024-01-07 13:30 | disposition home or self-care (01) ==
LOC: DL.ED 11:52
DX: M10.9 Gout, unspecified (principal); I10 Essential (primary) hypertension; E78.00 Pure hypercholesterolemia, unspecified; Z79.899 Other long term (current) drug therapy; Z79.82 Long term (current) use of aspirin; Z88.0 Allergy status to penicillin
CPT/HCPCS: 36415; 73130-LT; 84550; 85025; 85651; 86140; 99283; 99284; A9270-GY

== ENCOUNTER 2024-02-03 14:09 | Emergency (ER) | payer MEDICAID ==
[2024-02-03] MEDS: Take Home: predniSONE 20 MG, 4 Tab Pack PO ONE (15:03)
[2024-02-03] MEDS: Ketorolac 30 MG/ML SDV IM ONE (15:03)
== END 2024-02-03 15:18 | disposition home or self-care (01) ==
LOC: DL.ED 14:09
DX: M10.9 Gout, unspecified (principal); I10 Essential (primary) hypertension; E78.00 Pure hypercholesterolemia, unspecified; K21.9 Gastro-esophageal reflux disease without esophagitis; Z79.899 Other long term (current) drug therapy; Z79.82 Long term (current) use of aspirin; Z88.0 Allergy status to penicillin
CPT/HCPCS: 96372; 99283; A9270; J1885

== ENCOUNTER 2024-03-04 13:58 | Emergency (ER) | payer MEDICAID ==
[2024-03-04] MEDS: Lisinopril 20 MG Tab PO ONE (14:22)
[2024-03-04] MEDS: Hydrochlorothiazide 25 MG Tab PO ONE (14:23)
[2024-03-04] MEDS: cloNIDine 0.1 MG Tab PO ONE (14:23)
== END 2024-03-04 15:32 | disposition home or self-care (01) ==
LOC: DL.ED 13:58
DX: J01.10 Acute frontal sinusitis, unspecified (principal); I10 Essential (primary) hypertension; Z79.82 Long term (current) use of aspirin; Z79.899 Other long term (current) drug therapy; Z88.0 Allergy status to penicillin
CPT/HCPCS: 99283; 99284; A9270-GY

== ENCOUNTER 2024-03-19 18:45 | Emergency (ER) | payer MEDICAID ==
[2024-03-19] MEDS: guaiFENesin 600 MG Tab.ER PO ONE (19:55)
== END 2024-03-19 19:57 | disposition home or self-care (01) ==
LOC: DL.ED 18:45
DX: J06.9 Acute upper respiratory infection, unspecified (principal); I10 Essential (primary) hypertension; Z88.0 Allergy status to penicillin; Z79.82 Long term (current) use of aspirin; Z79.899 Other long term (current) drug therapy
CPT/HCPCS: 99283; A9270-GY

== ENCOUNTER 2024-06-01 13:51 | Emergency (ER) | payer MEDICAID ==
[2024-06-01] MEDS ORDERED: Ampicillin/Sulbactam Na 1.5 GM in Sodium Chloride 0.9% 100 ML IV ONE (14:16)
[2024-06-01] MEDS ORDERED: Ampicillin/Sulbactam Na 3 GM in Sodium Chloride 0.9% 100 ML IV ONE (14:18)
[2024-06-01] MEDS: fentaNYL 100 MCG/2 ML SDV IVPUSH ONE (14:31)
[2024-06-01 14:46] LABS: HEMATOCRIT 43.8 % (40.0-54.0); HEMOGLOBIN 14.8 g/dL (14.0-18.0); MEAN CORPUSCULAR HEMOGLOBIN 29.4 pg (27.0-34.0); MEAN CORPUSCULAR HGB CONC 33.8 g/dL (33.0-35.0); MEAN CORPUSCULAR VOLUME 87.1 fL (80-100); PLATELET COUNT,PLT 187 10^3/uL (150-450); RED BLOOD CELL COUNT 5.03 10^6/uL (4.6-6.2); WHITE BLOOD CELL COUNT,WBC 12.8 10^3/uL (5.0-10.0)
[2024-06-01] MEDS: Levofloxacin/Dextrose 5%-Water 750 MG in Premix Bag 1 BAG IV ONE (14:46)
[2024-06-01] MEDS: metroNIDAZOLE/Normal Saline 500 MG in Premix Bag 1 BAG IV ONE (14:48)
[2024-06-01 14:49] LABS: BASOPHILS PERCENT AUTO 0.6 % (0.0-1.0); EOSINOPHILS PERCENT AUTO 1.6 % (1.0-3.0); LYMPHOCYTES PERCENT AUTO 8.6 % (20.5-50.1); MONOCYTES PERCENT AUTO 7.7 % (2-8); NEUTROPHILS PERCENT AUTO 81.5 % (42.2-75.2)
[2024-06-01] MEDS: Iopamidol 612 MG/ML 100 ML Bottle IVPUSH ONE (14:54)
[2024-06-01] MEDS: Diphtheria,Pertussis(Acell),Tetanus Vaccine 0.5 ML Syringe IM ONE (14:54)
[2024-06-01 14:58] LABS: ANION GAP 14.5 mEq/L (7-13); BLOOD UREA NITROGEN,BUN 7 mg/dL (7-18); C-REACTIVE PROTEIN 6.53 ng/dL (<=0.50); CALCIUM 8.7 mg/dL (8.5-10.1); CARBON DIOXIDE,CO2 29 mmol/L (21-32); CHLORIDE,CL 98 mmol/L (98-107); CREATININE 0.92 mg/dL (0.70-1.30); GLUCOSE RANDOM 123 mg/dL (70-99); POTASSIUM,K 3.5 mmol/L (3.5-5.1); SODIUM,NA 138 mmol/L (136-145)
[2024-06-01 14:59] LABS: ESTIMATED GFR 98 mL/min (>=60)
[2024-06-01 15:06] LABS: BAND PERCENT MAN 2 %; EOSINOPHILS PERCENT MAN 2 % (1-3); LYMPHOCYTES PERCENT MAN 6 % (20-50); MONOCYTES PERCENT MAN 4 % (2-8); SEG NEUTROPHILS PERCENT MAN 86 % (42-75)
[2024-06-01 15:07] LABS: LACTIC ACID 1.5 mmol/L (0.4-2.0)
[2024-06-01] MEDS: Lactated Ringers 1,000 ML IV ONE (15:24)
[2024-06-01] MEDS: LORazepam 2 MG/ML SDV IVPUSH ONE (18:11)
[2024-06-01] MEDS: HYDROmorphone 1 MG/ML Syringe IVPUSH ONE (18:30)
== END 2024-06-01 18:38 ==
LOC: DL.ED 13:51
DX: L03.011 Cellulitis of right finger (principal); M00.9 Pyogenic arthritis, unspecified; I10 Essential (primary) hypertension; Z88.0 Allergy status to penicillin; Z79.899 Other long term (current) drug therapy; Z79.82 Long term (current) use of aspirin; W50.3XXA Accidental bite by another person, initial encounter
CPT/HCPCS: 36415; 73201; 80048; 83605; 85025; 85651; 86140; 87040; 90471; 90715; 96365; 96368; 96375; 99285; 99291; J1171; J1836; J1956; J2060; J3010; J7120; Q9967

== ENCOUNTER 2024-06-13 01:10 | Emergency (ER) | payer MEDICAID ==
[2024-06-13 01:04] LABS: BASOPHILS PERCENT AUTO 0.4 % (0.0-1.0); EOSINOPHILS PERCENT AUTO 3.7 % (1.0-3.0); HEMATOCRIT 40.1 % (40.0-54.0); LYMPHOCYTES PERCENT AUTO 27.5 % (20.5-50.1); MEAN CORPUSCULAR HGB CONC 34.9 g/dL (33.0-35.0); MEAN CORPUSCULAR VOLUME 85.9 fL (80-100); MONOCYTES PERCENT AUTO 9.2 % (2-8); NEUTROPHILS PERCENT AUTO 59.2 % (42.2-75.2); PLATELET COUNT,PLT 415 10^3/uL (150-450); RED BLOOD CELL COUNT 4.67 10^6/uL (4.6-6.2); WHITE BLOOD CELL COUNT,WBC 7.3 10^3/uL (5.0-10.0)
[~2024-06-13 01:10] MED LIST: Naloxone 2 MG/2 ML Syringe IVPUSH PRN; Sodium Chloride 0.9% 10 ML Syringe FLUSH PRN
[2024-06-13 01:14] LABS: AMPHETAMINES,URINE NEGATIVE (NEGATIVE); BARBITURATES,URINE NEGATIVE (NEGATIVE); BENZODIAZEPINE,URINE NEGATIVE (NEGATIVE); MDMA (ECSTASY), URINE NEGATIVE (NEGATIVE); METHADONE,URINE NEGATIVE (NEGATIVE); METHAMPHETAMINES,URINE NEGATIVE (NEGATIVE); OPIATES,URINE NEGATIVE (NEGATIVE); OXYCODONE,URINE POSITIVE (NEGATIVE); PHENCYCLIDINE,URINE NEGATIVE (NEGATIVE); TCA,URINE NEGATIVE (NEGATIVE)
[2024-06-13 01:27] LABS: ALANINE AMINOTRANSFERASE,ALT 75 U/L (16-63); ALKALINE PHOSPHATASE 154 U/L (46-116); ASPARTATE AMNIOTRANSFERASE,AST 60 U/L (15-37); BILIRUBIN TOTAL 0.3 mg/dL (0.2-1.0); BLOOD UREA NITROGEN,BUN 6 mg/dL (7-18); BUN/CREATININE RATIO 5.1 (No establ ref range); CALCIUM 8.1 mg/dL (8.5-10.1); CREATININE 1.18 mg/dL (0.70-1.30); ETHANOL BLOOD MEDICAL 206 mg/dL (0); GLUCOSE RANDOM 128 mg/dL (70-99); MAGNESIUM 2.2 mg/dL (1.8-2.4); PROTEIN TOTAL,TP 8.3 g/dL (6.4-8.2)
[2024-06-13 01:33] LABS: ANION GAP 13.1 mEq/L (7-13); CARBON DIOXIDE,CO2 24 mmol/L (21-32); CHLORIDE,CL 96 mmol/L (98-107); POTASSIUM,K 3.1 mmol/L (3.5-5.1); SODIUM,NA 130 mmol/L (136-145)
[2024-06-13 01:35] LABS: A/G RATIO 0.57; ACETAMINOPHEN 0 ug/mL (10-30 (Therapeutic)); ESTIMATED GFR 73 mL/min (>=60)
[2024-06-13] MEDS: Potassium Chloride 10 MEQ Tab.ER PO ONE (02:56)
== END 2024-06-13 03:10 | disposition home or self-care (01) ==
LOC: DL.ED 01:10
DX: F10.10 Alcohol abuse, uncomplicated (principal); I10 Essential (primary) hypertension; E78.00 Pure hypercholesterolemia, unspecified; Z88.0 Allergy status to penicillin; Z79.899 Other long term (current) drug therapy; Y90.9 Presence of alcohol in blood, level not specified
CPT/HCPCS: 36415; 80053; 80143; 80179; 80305-QW; 80307; 83735; 85025; 99284; A9270-GY

== ENCOUNTER 2024-12-18 06:21 | Day surgery (SDC) | payer MEDICAID ==
[~2024-12-18 06:21] MED LIST changes: +Ketamine 500 mg/10 ML MDV ONE; -Naloxone 2 MG/2 ML Syringe IVPUSH PRN; +Propofol 200 MG/20 ML SDV ONE; -Sodium Chloride 0.9% 10 ML Syringe FLUSH PRN
[2024-12-18] MEDS: Lactated Ringers 1,000 ML IV SCH (06:51)
== END 2024-12-18 09:25 | disposition home or self-care (01) ==
LOC: DL.ENDO 06:21
PROVIDERS: ATTEND Internal Medicine Gastroenterology
DX: K29.50 Unspecified chronic gastritis without bleeding (principal); K31.89 Other diseases of stomach and duodenum; K25.9 Gastric ulcer, unspecified as acute or chronic, without hemorrhage or perforation; D64.9 Anemia, unspecified; E66.09 Other obesity due to excess calories; R79.89 Other specified abnormal findings of blood chemistry; F17.210 Nicotine dependence, cigarettes, uncomplicated; Z88.0 Allergy status to penicillin; Z68.36 Body mass index [BMI] 36.0-36.9, adult
CPT/HCPCS: 00731; J7120

== ENCOUNTER 2024-12-19 05:26 | Day surgery (SDC) | payer MEDICAID ==
[2024-12-19] MEDS: Lactated Ringers 1,000 ML IV SCH (06:07)
[2024-12-19] MEDS ORDERED: Propofol 200 MG/20 ML SDV ONE ×2 (06:09→06:54)
== END 2024-12-19 08:14 | disposition home or self-care (01) ==
LOC: DL.ENDO 05:26
PROVIDERS: ATTEND Internal Medicine Gastroenterology
DX: R10.9 Unspecified abdominal pain (principal)
CPT/HCPCS: 45378; J7120